=== PATIENT | male | born 1990 | race Two or more races ===

== ENCOUNTER 2019-01-09 04:34 | Day surgery (SDC) | payer OTHER ==
[~2019-01-09 04:34] MED LIST: FORTAMET500 MG PO; RESTORIL PO
== END 2019-01-09 11:55 | disposition home or self-care (01) ==
LOC: CIR.AMB 04:34
DX: K80.10 Calculus of gallbladder with chronic cholecystitis without obstruction (principal)

== ENCOUNTER 2019-01-12 11:08 | Emergency (ER) | payer OTHER ==
[~2019-01-12] VITALS: Ht 162.6 cm; Wt 103.9 kg
[2019-01-12] MEDS ORDERED: RESTORIL30 MG (11:30)
== END 2019-01-12 14:08 | disposition home or self-care (01) ==
LOC: ER 11:08
DX: K59.09 Other constipation (principal)

== ENCOUNTER 2019-05-08 18:47 | Emergency (ER) | payer OTHER ==
[~2019-05-08] VITALS: Ht 162.6 cm; Wt 104.3 kg
[~2019-05-08 18:47] MED LIST changes: +RESTORIL30 MG
[2019-05-08] MEDS ORDERED: TRAZODONE HCL50 MG (19:25)
== END 2019-05-08 22:12 | disposition home or self-care (01) ==
LOC: ER 18:47
DX: B34.9 Viral infection, unspecified (principal)

== ENCOUNTER → 2019-10-31 | Outpatient (CLI) | payer OTHER ==
[~2019-10-31] MED LIST changes: +TRAZODONE HCL50 MG
== END | disposition home or self-care (01) ==
LOC: OFIC 805 13:25
PROVIDERS: ATTEND Otolaryngology Otology & Neurotology
DX: H92.03 Otalgia, bilateral (principal); H90.3 Sensorineural hearing loss, bilateral; H61.23 Impacted cerumen, bilateral

== ENCOUNTER → 2020-02-04 | Outpatient (CLI) | payer OTHER | END | disposition home or self-care (01) | LOC: OFIC 805 01-28 11:00 | PROVIDERS: ATTEND Otolaryngology Otology & Neurotology | DX: L30.8 Other specified dermatitis (principal); H92.03 Otalgia, bilateral; H61.23 Impacted cerumen, bilateral; H90.3 Sensorineural hearing loss, bilateral ==

== ENCOUNTER → 2020-03-22 | Outpatient (CLI) | payer OTHER | END | disposition home or self-care (01) | LOC: OFIC 805 08:50 | PROVIDERS: ATTEND Otolaryngology Otology & Neurotology | DX: L30.8 Other specified dermatitis (principal); H90.3 Sensorineural hearing loss, bilateral; H61.23 Impacted cerumen, bilateral ==

== ENCOUNTER 2024-04-03 15:18 | Emergency (ER) | payer OTHER ==
[~2024-04-03] VITALS: Ht 162.6 cm; Wt 97.5 kg
[2024-04-03] MEDS ORDERED: FARXIGA10 MG PO (15:34)
[2024-04-03] MEDS ORDERED: MECLIZINE HCL 25 MG TABLET PO ONE ×2 (19:30→22:16)
[2024-04-03 19:36] LABS: HEMATOCRIT 47.3 % (39.0-48.0); HEMOGLOBIN 16.3 g/dL (13-16.00); MEAN CELL VOLUME 87.5 fL (80.0-100.00); MEAN CORPUSCULAR HEMOGLOBIN 30.1 pg (27.00-32.0); MEAN CORPUSCULAR HGB CONC 34.4 g/dl (32.0-36.0); PLATELET COUNT 282 K/uL (150-450); RED CELL DISTRIBUTION WIDTH 14.6 % (11.5-14.5)
[2024-04-03 19:51] LABS: ALBUMIN 4.3 gm/dL (3.4-5.0); BILIRUBIN TOTAL 0.54 mg/dL (0.3-1.2); CALCIUM 9.6 mg/dL (8.5-10.1); CREATININE SERUM 0.83 mg/dL (0.70-1.30); GFR 108.06; GLOBULINA 3.8 G/DL (2.4-3.5); POTASSIUM 4.02 mEq/L (3.5-5.1); TOTAL PROTEIN 8.1 gm/dL (6.4-8.2)
== END 2024-04-04 00:20 | disposition home or self-care (01) ==
LOC: ER 15:20
PROVIDERS: Preventive Medicine Public Health & General Preventive Medicine
DX: R42 Dizziness and giddiness (principal); E11.9 Type 2 diabetes mellitus without complications; Z79.84 Long term (current) use of oral hypoglycemic drugs